=== PATIENT | male | born 1940 | race African-American/Black ===

== ENCOUNTER 2021-09-13 18:29 | Inpatient (IN) | payer MEDICARE ==
[~2021-09-13] VITALS: Ht 175.3 cm; Wt 75.7 kg
[~2021-09-13 18:29] MED LIST: COR3 PO; LOSA25TA26 PO; ecotrin PO
[2021-09-13] MEDS ORDERED: SODIUM CHLORIDE 0.9% 1,000 ML IV ONE (19:00)
[2021-09-13 19:38] LABS: BASOPHILS % 1.1 % (0.0-2.0); EOSINOPHILS % 6.9 % (0.0-5.0); HEMATOCRIT. 40.3 % (42.0-52.0); HEMOGLOBIN. 13.4 g/dL (14.0-18.0); LYMPHOCYTES % 27.3 % (20.0-50.0); MEAN CORPUSCULAR HEMOGLOBIN 30.2 pg (28.0-32.0); MEAN CORPUSCULAR VOLUME 90.6 fL (80.0-94.0); MEAN PLATELET VOLUME 9.1 fl (7.4-10.4); MONOCYTES % 12.9 % (2.0-8.0); NEUTROPHILS % 51.8 % (40.0-76.0); PLATELET 210 x1000/uL (130-400); RED BLOOD CELL COUNT 4.45 mill/uL (4.7-6.1); RED CELL DISTRIBUTION WIDTH 14.4 % (11.6-14.6)
[2021-09-13 19:46] LABS: CHLORIDE 114 mEq/L (98-107)
[2021-09-13 23:30] VITALS: BP 185/71
[2021-09-14] VITALS: BP 185/71
[2021-09-14] MEDS ORDERED: AMLODIPINE 10MG TABLET PO SCH (01:00)
[2021-09-14 04:00] VITALS: BP 174/91
[2021-09-14] MEDS ORDERED: CLONIDINE 0.1MG TABLET PO PRN (06:30)
[2021-09-14 08:00] VITALS: BP 152/80
[2021-09-14] MEDS: ENOXAPARIN 40MG/0.4ML SYR SUBCUT SCH (08:41)
[2021-09-14] MEDS: AMLODIPINE 10MG TABLET PO SCH (08:41)
[2021-09-14 12:00] VITALS: BP 158/88
[2021-09-14] MEDS ORDERED: HYDRALAZINE HCL 100MG TABLET PO SCH (15:00)
[2021-09-14 15:28] LABS: CLARITY URINE CLEAR (CLEAR); COLOR URINE YELLOW (YELLOW); KETONES URINE NEGATIVE (NEGATIVE); LEUKOCYTE ESTERASE URINE NEGATIVE (NEGATIVE); NITRITE URINE NEGATIVE (NEGATIVE); OCCULT BLOOD URINE NEGATIVE (NEGATIVE); PROTEIN URINE NEGATIVE (NEGATIVE); SPECIFIC GRAVITY URINE 1.012 (1.005-1.030); UROBILINOGEN URINE 0.2 E.U./dL (0.2-1.0)
[2021-09-14 16:00] VITALS: BP 123/76
[2021-09-14 20:00] VITALS: BP 128/78
[2021-09-14] MEDS: HYDRALAZINE HCL 100MG TABLET PO SCH (21:04)
[2021-09-15] VITALS: BP 136/82
[2021-09-15 04:00] VITALS: BP 149/83
[2021-09-15 06:52] LABS: BASOPHILS % 0.8 % (0.0-2.0); EOSINOPHILS % 6.5 % (0.0-5.0); HEMATOCRIT. 41.5 % (42.0-52.0); HEMOGLOBIN. 13.3 g/dL (14.0-18.0); LYMPHOCYTES % 34.4 % (20.0-50.0); MEAN CORPUSCULAR HEMOGLOBIN 29.6 pg (28.0-32.0); NEUTROPHILS % 47.3 % (40.0-76.0); RED BLOOD CELL COUNT 4.51 mill/uL (4.7-6.1)
[2021-09-15 07:06] LABS: CHLORIDE 112 mEq/L (98-107)
[2021-09-15 08:00] VITALS: BP 145/85
[2021-09-15] MEDS: ENOXAPARIN 40MG/0.4ML SYR SUBCUT SCH (08:37)
[2021-09-15] MEDS: AMLODIPINE 10MG TABLET PO SCH (08:37)
[2021-09-15] MEDS: HYDRALAZINE HCL 100MG TABLET PO SCH ×2 (08:37→20:53)
[2021-09-15 12:00] VITALS: BP 133/69
[2021-09-15 13:35] LABS: MEAN PLATELET VOLUME 10.1 fl (7.4-10.4)
[2021-09-15 13:36] LABS: PLATELET 169 x1000/uL (130-400)
[2021-09-15 16:00] VITALS: BP 123/79
[2021-09-15 20:00] VITALS: BP 131/85
[2021-09-16] VITALS: BP 140/78
[2021-09-16 04:00] VITALS: BP 138/81
[2021-09-16 08:00] VITALS: BP 161/98
[2021-09-16] MEDS: AMLODIPINE 10MG TABLET PO SCH (08:44)
[2021-09-16] MEDS: HYDRALAZINE HCL 100MG TABLET PO SCH (08:44)
[2021-09-16] MEDS: ENOXAPARIN 40MG/0.4ML SYR SUBCUT SCH (08:45)
[2021-09-16 12:00] VITALS: BP 134/7
[2021-09-16 14:52] VITALS: BP 134/77
== END 2021-09-16 15:45 | disposition home or self-care (01) | DRG 70 ==
LOC: ER 18:29 → 8WST 21:59 → ENRESERV 22:16
PROVIDERS: ADMIT Internal Medicine; ATTEND Internal Medicine
DX: G93.40 Encephalopathy, unspecified (principal); N17.0 Acute kidney failure with tubular necrosis; D72.819 Decreased white blood cell count, unspecified; E87.8 Other disorders of electrolyte and fluid balance, not elsewhere classified; F03.90 Unspecified dementia, unspecified severity, without behavioral disturbance, psychotic disturbance, mood disturbance, and anxiety; I10 Essential (primary) hypertension; Z79.899 Other long term (current) drug therapy
CPT/HCPCS: 36415; 70551; 71045; 80048; 80053; 81003; 84443; 84484; 85025; 93005; 97162; 97166; 99285; J1650; J7030

== ENCOUNTER 2021-11-09 10:21 | Inpatient (IN) | payer MEDICARE ==
[~2021-11-09] VITALS: Ht 170.2 cm; Wt 66.0 kg
[2021-11-09 18:06] LABS: HEMATOCRIT. 35.2 % (42.0-52.0); HEMOGLOBIN. 11.1 g/dL (14.0-18.0); MEAN CORPUSCULAR HEMOGLOBIN 29.1 pg (28.0-32.0); MEAN PLATELET VOLUME 11.2 fl (7.4-10.4); PLATELET 168 x1000/uL (130-400); RED BLOOD CELL COUNT 3.82 mill/uL (4.7-6.1); RED CELL DISTRIBUTION WIDTH 14.3 % (11.6-14.6)
[2021-11-09 18:41] LABS: PLATELET ESTIMATE NORMAL
[2021-11-09] MEDS ORDERED: DEXTROSE 50% WATER 50ML SYRINGE IV ONE (22:45)
[2021-11-09 23:21] LABS: CHLORIDE 115 mEq/L (98-107)
[2021-11-10 00:06] LABS: CLARITY URINE CLEAR (CLEAR); COLOR URINE YELLOW (YELLOW); KETONES URINE 1+ (NEGATIVE); LEUKOCYTE ESTERASE URINE NEGATIVE (NEGATIVE); NITRITE URINE NEGATIVE (NEGATIVE); OCCULT BLOOD URINE NEGATIVE (NEGATIVE); PROTEIN URINE NEGATIVE (NEGATIVE); SPECIFIC GRAVITY URINE 1.017 (1.005-1.030); UROBILINOGEN URINE 0.2 E.U./dL (0.2-1.0)
[2021-11-10] MEDS ORDERED: ONDANSETRON HCL 4MG/2ML INJ IV PRN (01:15)
[2021-11-10] MEDS ORDERED: GUAIFENESIN 200MG/10ML SUGAR FREE UDC PO PRN (01:15)
[2021-11-10] MEDS ORDERED: ACETAMINOPHEN 325MG TABLET PO PRN ×2 (01:15)
[2021-11-10] MEDS ORDERED: CLONIDINE 0.1MG TABLET PO PRN (01:15)
[2021-11-10] MEDS: HALOPERIDOL LACTATE 5MG/ML VIAL IM PRN ×2 (02:18→23:05)
[2021-11-10] MEDS: LORAZEPAM 2MG/ML CPJ IV PRN (16:10)
[2021-11-11 11:50] VITALS: BP 132/93
[2021-11-11 12:00] VITALS: BP 166/78
[2021-11-11 16:00] VITALS: BP 142/79
[2021-11-11 20:00] VITALS: BP 151/91
[2021-11-11] MEDS: LORAZEPAM 2MG/ML CPJ IV PRN (20:03)
[2021-11-11 22:00] VITALS: BP 148/84
[2021-11-12] VITALS (9 sets, daily range): BP systolic 135–146; BP diastolic 72–84
== END 2021-11-12 22:00 | DRG 640 ==
LOC: ER 10:21 → MICUSO 23:15 → 5WST 11-11 10:44
PROVIDERS: ADMIT Internal Medicine; ATTEND Internal Medicine
DX: R62.7 Adult failure to thrive (principal); E43 Unspecified severe protein-calorie malnutrition; F03.90 Unspecified dementia, unspecified severity, without behavioral disturbance, psychotic disturbance, mood disturbance, and anxiety; I10 Essential (primary) hypertension; Z20.822 Contact with and (suspected) exposure to COVID-19; Z79.899 Other long term (current) drug therapy; Z86.16 Personal history of COVID-19; Z68.22 Body mass index [BMI] 22.0-22.9, adult
CPT/HCPCS: 36415; 71045; 80053; 81003; 82962; 83605; 83880; 84484; 85025; 87426; 97161; 97166; 99285; J1630; J2060